=== PATIENT | female | born 1935 | race Caucasian/White ===

== ENCOUNTER 2017-10-02 09:54 | Outpatient (CLI) | payer MEDICARE | END 2017-10-02 09:55 | disposition home or self-care (01) | LOC: BICMAMMO 09:54 | PROVIDERS: ATTEND Physician Assistant | DX: Z13.820 Encounter for screening for osteoporosis (principal); M85.89 Other specified disorders of bone density and structure, multiple sites | CPT/HCPCS: 77080 ==

== ENCOUNTER 2017-12-24 14:45 | Emergency (ER) | payer MEDICARE ==
[2017-12-24 15:26] LABS: #Lymphocytes 1.7 thou/uL (1.20-3.40); #Monocytes 0.4 thou/uL (0.11-0.59); #Neutrophils 4.8 thou/uL (1.40-6.50); %Basophils 0.3 % (0.0-1.0); %Eosinophils 0.2 % (0.0-10.0); %Lymphocytes 24.6 % (21.0-51.0); %Monocytes 6.3 % (0.0-10.0); %Neutrophils 68.6 % (42.0-75.0); Hemoglobin 13.5 g/dL (12.0-16.0); Mean Corpuscular HGB CONC 33.4 g/dL (32.0-36.0); Mean Corpuscular Hemoglobin 28.8 pg (27.0-31.0); Mean Corpuscular Volume 86.1 fl (81.0-99.0); Mean Platelet Volume 7.8 fL (7.4-10.4); Platelet Count 279 thou/uL (130-400); RBC Distribution Width 12.9 % (11.5-14.5); Red Blood Cell (RBC) Count 4.71 mill/uL (4.20-5.40); White Blood Cell (WBC) Count 7.1 thou/uL (4.8-10.8)
[2017-12-24 15:49] LABS: ALT (SGPT) 14 U/L (8-55); AST (SGOT) 13 U/L (5-34); Alkaline Phosphatase 73 U/L (40-150); Anion Gap 12 mmol/L (10-20); BUN (Urea Nitrogen) 9 mg/dL (9.8-20.1); Bilirubin, Total 0.5 mg/dL (0.2-1.2); Calc. Creatinine Clearance 0 mL/min (70-130); Calcium 9.8 mg/dL (7.8-10.44); Carbon Dioxide 25 mmol/L (23-31); Chloride 108 mmol/L (98-107); Estimated GFR-MDRD 78; Globulin 3.1 g/dL (2.4-3.5); Glucose 104 mg/dL (83-110); Potassium 3.8 mmol/L (3.5-5.1); Protein, Total 7.1 g/dL (6.0-8.3); Sodium 141 mmol/L (136-145)
[2017-12-24 15:54] LABS: CKMB 2.8 ng/mL (0-6.6); Troponin I Less than 0.010 ng/mL (< 0.028)
[2017-12-24] MEDS ORDERED: Meclizine HCl 25 MG TAB ONE (16:31)
--- NOTE | 2017-12-24 16:53 | MRI ---
BRAIN MRI WITHOUT CONTRAST: 12/24/17 HISTORY: Patient was transferred from an outside hospital for persistent dizziness. Evaluate for stroke. COMPARISON: None. TECHNIQUE: Brain MRI is performed without intravenous gadolinium administration. Multisequential, multiplanar im aging is performed. FINDINGS: No hemorrhage on the axial gradient echo sequence. There is age appropriate atrophy. Central arterial flow voids are maintained. Absent restricted diffusion. No parenchymal mass, mass effect or midline shift. Brain volume is age appropriate. Cortical cruz-whi te matter differentiation is preserved. Ventricles and sulci are patent and symmetric. T2 and FLAIR white matter hyperintensity due to chronic small vessel ischemic change. Calvarium has a normal marrow signal intensity. Midline brain parenchymal structures are unremarkable. IMPRESSION: Absent restricted diffusion. No acute infarct. POS: [facility]
== END 2017-12-24 17:01 | disposition home or self-care (01) ==
LOC: ERS 14:45
DX: R42 Dizziness and giddiness (principal); H55.00 Unspecified nystagmus; Z79.899 Other long term (current) drug therapy; Z79.82 Long term (current) use of aspirin
CPT/HCPCS: 36415; 70551

== ENCOUNTER 2020-12-14 22:11 | Inpatient (IN) | payer MEDICARE ==
[2020-12-15 00:29] VITALS: BMI 23.1
[2020-12-15] MEDS ORDERED: Morphine 2 MG/ML VIAL SLOW IVP PRN ×2 (01:32→02:07)
[2020-12-15] MEDS ORDERED: Ondansetron PF 4 MG/2 ML Vial IVP PRN ×2 (01:34→02:07)
[2020-12-15] MEDS ORDERED: D5 1/2 NS w/20 mEq KCL 1,000 ML IV SCH (01:45)
[2020-12-15] MEDS ORDERED: metroNIDAZOLE 500 MG in Premix Bag 1 BAG IVPB SCH (02:00)
[2020-12-15] MEDS ORDERED: Ondansetron ODT 4 MG TAB PO PRN (02:07)
[2020-12-15] MEDS: D5 1/2 NS w/20 mEq KCL 1,000 ML IV SCH ×3 (02:18→21:37)
[2020-12-15 04:42] LABS: #Neutrophils 9.1 thou/uL (1.40-6.50); %Basophils 0.1 % (0.0-1.0); %Eosinophils 0.4 % (0.0-10.0); %Lymphocytes 8.6 % (21.0-51.0); %Monocytes 8.8 % (0.0-10.0); %Neutrophils 82.1 % (42.0-75.0); Hemoglobin 12.7 g/dL (12.0-16.0); Mean Corpuscular HGB CONC 32.7 g/dL (32.0-36.0); Mean Corpuscular Hemoglobin 27.9 pg (27.0-31.0); Mean Corpuscular Volume 85.4 fL (78.0-98.0); Mean Platelet Volume 8.3 fL (7.4-10.4); Platelet Count 257 thou/uL (130-400); RBC Distribution Width 12.3 % (11.5-14.5); Red Blood Cell (RBC) Count 4.54 mill/uL (4.20-5.40)
[2020-12-15 05:20] LABS: Anion Gap 10 mmol/L (10-20); BUN (Urea Nitrogen) 9 mg/dL (9.8-20.1); Calc. Creatinine Clearance 50 mL/min (70-130); Calcium 9.8 mg/dL (7.8-10.44); Carbon Dioxide 25 mmol/L (23-31); Chloride 102 mmol/L (98-107); Glucose 169 mg/dL (83-110); Magnesium 1.8 mg/dL (1.6-2.6); Potassium 4.2 mmol/L (3.5-5.1); Sodium 133 mmol/L (136-145)
[2020-12-15] MEDS ORDERED: hydrALAZINE 20 MG/ML VIAL SLOW IVP PRN (07:54)
[2020-12-15] MEDS: Pantoprazole 40 MG VIAL IVP SCH (08:37)
[2020-12-15 08:51] LABS: SARS-CoV-2 PCR by NAA Not Detected (NotDetected)
[2020-12-15] MEDS ORDERED: Carvedilol 6.25 MG TAB PO SCH (09:00)
[2020-12-15] MEDS ORDERED: Lisinopril 10 MG TAB PO SCH (09:00)
[2020-12-15] MEDS ORDERED: Lorazepam 0.5 MG TAB PO ONE (10:17)
[2020-12-15 11:44] LABS: Bacteria/HPF None Seen HPF (None Seen); Bilirubin Negative (Negative); Blood, Urine Negative (Negative); Clarity Clear (Clear); Glucose, Urine (Dipstick) Normal (Negative); Ketone, Urine Negative (Negative); Leukocyte Negative Leu/uL (Negative); Nitrite Negative (Negative); Protein, Urine (Dipstick) Negative (Neg-Trace); RBC/HPF 0-3 HPF (0-3); Specific Gravity, Urine 1.022 (1.002-1.036); Squamous Epithelial None Seen HPF (0-3); Urobilinogen Normal mg/dL (Less than 2); WBC/HPF 0-3 HPF (0-3); pH, Urine 6.5 (5.0-9.0)
[2020-12-15 11:46] LABS: Urine Culture Reflex No No
[2020-12-15] MEDS ORDERED: Loratadine 5 MG/5 ML UDCUP PO PRN (18:44)
[2020-12-15] MEDS: cefTRIAXone\\ROCEPHIN 1 GM in Sodium Chloride 0.9% 100 ML IVPB SCH (20:20)
[2020-12-15] MEDS ORDERED: Montelukast Sodium 10 mg Tablet PO SCH (21:00)
[2020-12-16 05:23] LABS: #Eosinphils 0.2 thou/uL (0.0-0.7); #Lymphocytes 1.6 thou/uL (1.20-3.40); #Monocytes 0.8 thou/uL (0.11-0.59); #Neutrophils 3.9 thou/uL (1.40-6.50); %Basophils 0.6 % (0.0-1.0); %Eosinophils 3.3 % (0.0-10.0); %Lymphocytes 24.1 % (21.0-51.0); Hemoglobin 11.1 g/dL (12.0-16.0); Mean Corpuscular HGB CONC 33.7 g/dL (32.0-36.0); Mean Corpuscular Hemoglobin 28.9 pg (27.0-31.0); Mean Corpuscular Volume 85.8 fL (78.0-98.0); Mean Platelet Volume 8.5 fL (7.4-10.4); Platelet Count 225 thou/uL (130-400); RBC Distribution Width 12.4 % (11.5-14.5); Red Blood Cell (RBC) Count 3.83 mill/uL (4.20-5.40); White Blood Cell (WBC) Count 6.5 thou/uL (4.8-10.8)
[2020-12-16 05:38] LABS: Anion Gap 6 mmol/L (10-20); BUN (Urea Nitrogen) 7 mg/dL (9.8-20.1); Calc. Creatinine Clearance 53 mL/min (70-130); Carbon Dioxide 25 mmol/L (23-31); Chloride 111 mmol/L (98-107); Glucose 129 mg/dL (83-110); Sodium 138 mmol/L (136-145)
[2020-12-16] MEDS: D5 1/2 NS w/20 mEq KCL 1,000 ML IV SCH ×2 (10:29→18:21)
[2020-12-16] MEDS: Pantoprazole 40 MG VIAL IVP SCH (10:30)
[2020-12-16] MEDS ORDERED: MD-Gastroview 120 ML BOT ONE (13:29)
[2020-12-16] MEDS: metroNIDAZOLE 500 MG in Premix Bag 1 BAG IVPB SCH ×2 (14:17→22:03)
[2020-12-16] MEDS ORDERED: Loratadine 10 MG TAB PO PRN (17:40)
[2020-12-16] MEDS: cefTRIAXone\\ROCEPHIN 1 GM in Sodium Chloride 0.9% 100 ML IVPB SCH (20:52)
[2020-12-17] MEDS: metroNIDAZOLE 500 MG in Premix Bag 1 BAG IVPB SCH (05:08)
[2020-12-17 05:10] LABS: #Eosinphils 0.3 thou/uL (0.0-0.7); #Lymphocytes 1.7 thou/uL (1.20-3.40); #Monocytes 0.7 thou/uL (0.11-0.59); #Neutrophils 3.8 thou/uL (1.40-6.50); %Basophils 0.4 % (0.0-1.0); %Eosinophils 4.8 % (0.0-10.0); %Lymphocytes 25.4 % (21.0-51.0); %Monocytes 11.1 % (0.0-10.0); %Neutrophils 58.3 % (42.0-75.0); Hemoglobin 11.2 g/dL (12.0-16.0); Mean Corpuscular HGB CONC 32.2 g/dL (32.0-36.0); Mean Corpuscular Hemoglobin 27.7 pg (27.0-31.0); Mean Platelet Volume 8.1 fL (7.4-10.4); Platelet Count 235 thou/uL (130-400); RBC Distribution Width 12.5 % (11.5-14.5); Red Blood Cell (RBC) Count 4.06 mill/uL (4.20-5.40); White Blood Cell (WBC) Count 6.6 thou/uL (4.8-10.8)
[2020-12-17 05:32] LABS: Anion Gap 8 mmol/L (10-20); BUN (Urea Nitrogen) 7 mg/dL (9.8-20.1); Calc. Creatinine Clearance 55 mL/min (70-130); Calcium 9.6 mg/dL (7.8-10.44); Carbon Dioxide 25 mmol/L (23-31); Chloride 108 mmol/L (98-107); Glucose 112 mg/dL (83-110); Potassium 3.7 mmol/L (3.5-5.1); Sodium 137 mmol/L (136-145)
[2020-12-17] MEDS: Pantoprazole 40 MG VIAL IVP SCH (08:47)
[2020-12-17 12:22] VITALS: BP 161/77; TEMP 97.7
== END 2020-12-17 15:15 | disposition home or self-care (01) | DRG 392 ==
LOC: SURG A 12-15 00:10
PROVIDERS: ADMIT Student in an Organized Health Care Education/Training Program; ATTEND Family Medicine
DX: K52.9 Noninfective gastroenteritis and colitis, unspecified (principal); I10 Essential (primary) hypertension; E78.5 Hyperlipidemia, unspecified; K21.9 Gastro-esophageal reflux disease without esophagitis; H35.30 Unspecified macular degeneration; Z20.822 Contact with and (suspected) exposure to COVID-19; Z88.0 Allergy status to penicillin; Z88.8 Allergy status to other drugs, medicaments and biological substances; Z79.82 Long term (current) use of aspirin; Z79.899 Other long term (current) drug therapy; Z90.49 Acquired absence of other specified parts of digestive tract; Z90.710 Acquired absence of both cervix and uterus
CPT/HCPCS: 36415; 74250; 80048; 81001; 83605; 83735; 85025; 87635; C9113; J0360; J0696; J2405; J3480; J3490; Q9963; U0003; U0005

== ENCOUNTER 2023-07-02 07:20 | Outpatient (CLI) | payer MEDICARE | END 2023-07-02 07:21 | disposition home or self-care (01) | LOC: NM 07:20 | PROVIDERS: ATTEND Internal Medicine Endocrinology, Diabetes & Metabolism | DX: E83.52 Hypercalcemia (principal); E04.1 Nontoxic single thyroid nodule; R94.8 Abnormal results of function studies of other organs and systems | CPT/HCPCS: 76536; 78072; A9500 ==

== ENCOUNTER 2024-09-25 13:09 | Outpatient (CLI) | payer MEDICARE, OTHER | END 2024-09-25 13:10 | disposition home or self-care (01) | LOC: BICULT 13:09 | PROVIDERS: ATTEND Otolaryngology | DX: E04.2 Nontoxic multinodular goiter (principal) | CPT/HCPCS: 76536 ==

== ENCOUNTER 2025-08-10 12:10 | Outpatient (CLI) | payer MEDICARE | END 2025-08-10 12:11 | disposition home or self-care (01) | LOC: CT 12:10 | PROVIDERS: ATTEND Internal Medicine Hematology & Oncology | DX: C88.00 Waldenstrom macroglobulinemia not having achieved remission (principal); D64.9 Anemia, unspecified; D70.1 Agranulocytosis secondary to cancer chemotherapy; T45.1X5A Adverse effect of antineoplastic and immunosuppressive drugs, initial encounter; Z79.899 Other long term (current) drug therapy; J98.4 Other disorders of lung; R91.8 Other nonspecific abnormal finding of lung field | CPT/HCPCS: 71250 ==